=== PATIENT | female | born 1990 | race Caucasian/White ===

== ENCOUNTER 2019-08-25 10:36 | Emergency (ER) | payer MEDICAID ==
[~2019-08-25] VITALS: Ht 162.6 cm; Wt 48.1 kg
--- NOTE | 2019-08-25 11:20 | NUR ---
Patient discharged to home in stable condition. Written and verbal after care instructions given. Patient verbalizes understanding of instruction.
[2019-08-25 11:32] VITALS: BP 115/91
== END 2019-08-25 11:33 | disposition home or self-care (01) ==
LOC: ER 10:41
DX: S63.592A Other specified sprain of left wrist, initial encounter (principal); V19.88XA Pedal cyclist (driver) (passenger) injured in other specified transport accidents, initial encounter; Y93.89 Activity, other specified; Y92.89 Other specified places as the place of occurrence of the external cause; Y99.8 Other external cause status
CPT/HCPCS: 73110; 73130-TC